=== PATIENT | male | born 1950 | race Caucasian/White ===

== ENCOUNTER 2020-07-01 17:39 | Emergency (ER) | payer MEDICARE, SELFPAY ==
[2020-07-01 17:50] VITALS: PULSE 65; RESP 20; TEMP 36.2; O2SAT 100
--- NOTE | 2020-07-01 17:52 | ED.SKABFB ---
HPI - Skin/Abscess/Foreign Bdy General Chief complaint: Skin/Abscess/Foreign Body Stated complaint: insect bite Time Seen by Provider: 07/01/20 17:55 Source: patient and RN notes reviewed Mode of arrival: ambulatory Limitations: no limitations History of Present Illness HPI narrative: 70-year-old male presents with concern for possible tick head lodged in his skin. Reports he pulled off a tick this evening that was large, he is unsure how long it was there. Reports that head did not come off with. He denies any rash, bull's-eye rash, fever, malaise, pain. MD complaint: foreign body Related Data Home Medications Medication Instructions Recorded Confirmed amiodarone 200 mg PO DAILY 07/01/20 07/01/20 apixaban [Eliquis] 5 mg PO DAILY 07/01/20 07/01/20 aspirin [Adult Low Dose Aspirin] 81 mg PO DAILY 07/01/20 07/01/20 coenzyme [id number] E [CoQ10 SG 400 PO DAILY 07/01/20 100] lisinopril 20 mg PO DAILY 07/01/20 07/01/20 metformin 500 mg PO DAILY 07/01/20 07/01/20 metoprolol succinate 100 mg PO DAILY 07/01/20 07/01/20 pravastatin 40 mg PO DAILY 07/01/20 07/01/20 Allergies Allergy/AdvReac Type Severity Reaction Status Date / Time NKDA Allergy Mild Uncoded 10/20/10 18:43 Review of Systems Review of Systems: Narrative: CONSTITUTIONAL: Denies malaise, chills, sweats, or fever. CARDIOVASCULAR: Denies chest pain, palpitations RESPIRATORY: Denies cough or dyspnea. SKIN: Reports possible tick head in his right arm Musculoskeletal: Denies muscle skeletal pain, myalgia. NEUROLOGIC: Denies numbness, weakness, or headache. All systems reviewed & are unremarkable except as noted in HPI and below PMFSH Social History Social History Gender identity (if verbalized by the patient): Male Comments At time of signature, agree with nursing past medical, surgical, social and family history. There is no relevant family history pertinent to the presenting complaint Exam Narrative: Exam Narrative: GENERAL: Well-appearing, well-nourished, and in no acute distress. HEAD: Normocephalic EYES: PERRLA, conjunctivae clear ENT: Mucous membranes moist. NECK: Supple. CHEST: No respiratory distress.. Speaks in full sentences. HEART: Regular rate and rhythm. Normal peripheral pulses. EXTREMITIES: Right upper arm has grossly normal range of motion, no edema, normal strength and sensation. SKIN: Warm, dry, no rash. 1 cm area of erythema, induration with center opening noted to the right upper arm. Pinpoint black foreign body noted NEURO: Alert and oriented x3. PSYCH: Normal mood and affect Course Course Emergency Course: Patient is aware of diagnosis, understands and agrees to treatment plan. Anticipatory guidance given. Patient agrees to follow-up as directed and is aware of reasons to seek care at the emergency department. Portions of this record may have been created with voice recognition software Vital Signs Vital signs: Vital Signs Temperature 97.1 F L 07/01/20 17:50 Pulse Rate 65 07/01/20 17:50 Respiratory Rate 20 07/01/20 17:50 Pulse Oximetry 100 07/01/20 17:50 Temperature 97.1 F L 07/01/20 17:50 Pulse Rate 65 07/01/20 17:50 Respiratory Rate 20 07/01/20 17:50 Pulse Oximetry 100 07/01/20 17:50 Reviewed. Patient has history of hypertension, reports has been taking Benadryl for a sinus infection. Procedures Foreign Body Removal Foreign Body #1: Foreign Body Removal Date: 07/01/20 Foreign Body Removal Time: 18:05 Time Out Performed: yes Site: right and upper extremity Description of foreign body: insect (To CAD) Sedation/Analgesia: none Technique: removal with forceps and incision made to facilitate removal (0.25cm incision with 11 blade) Confirmed by:: direct visualization Complications: none Post-procedure exam: awake, alert Neurovascular: normal distal pulse, normal capillary fill, distal light touch sensation intact, dist
== END 2020-07-01 18:35 | disposition home or self-care (01) ==
PROVIDERS: Emergency Provider Nurse Practitioner; PCP Internal Medicine
DX: S41.141A Puncture wound with foreign body of right upper arm, initial encounter (principal); W57.XXXA Bitten or stung by nonvenomous insect and other nonvenomous arthropods, initial encounter; E78.00 Pure hypercholesterolemia, unspecified; I10 Essential (primary) hypertension
CPT/HCPCS: 10120; 99202; G0463